=== PATIENT | male | born 1965 | race Caucasian/White ===

== ENCOUNTER 2019-12-27 10:29 | Emergency (ER) | payer BC ==
[~2019-12-27] VITALS: Ht 185.4 cm; Wt 85.0 kg
[2019-12-27 10:39] VITALS: BP 119/78
== END 2019-12-27 11:26 | disposition home or self-care (01) ==
LOC: ER 10:29
DX: B34.9 Viral infection, unspecified (principal); R50.9 Fever, unspecified; R51 Headache; M79.18 Myalgia, other site; Z20.828 Contact with and (suspected) exposure to other viral communicable diseases; Z72.89 Other problems related to lifestyle; Z98.890 Other specified postprocedural states
CPT/HCPCS: 36415; 87502; 87503; 87635; 99283